=== PATIENT | male | born 1970 | race Caucasian/White ===

== ENCOUNTER 2021-04-04 14:39 | Emergency (ER) | payer OTHER ==
[2021-04-04 14:48] VITALS: BP 147/93; PULSE 87; TEMP 98.9; BMI 30.5
[2021-04-04] MEDS ORDERED: DALBAVANCIN HCL 1,500 MG in DEXTROSE 5%-WATER - 500 ML IVPB ONE (17:42)
[2021-04-04] MEDS ORDERED: DALBAVANCIN HCL 500 MG VIAL (RESTRICTED TO ID ONLY) IVPB ONE (18:30)
== END 2021-04-04 20:01 | disposition home or self-care (01) ==
LOC: JER 14:39
DX: L03.032 Cellulitis of left toe (principal)
CPT/HCPCS: 99284-25; J0875